=== PATIENT | female | born 1960 | race Caucasian/White ===

== ENCOUNTER 2025-01-07 13:15 | Outpatient (CLI) | payer BC | END 2025-01-07 13:16 | disposition home or self-care (01) | LOC: CSHMAMMO 13:15 | PROVIDERS: ATTEND Family Medicine | DX: Z12.31 Encounter for screening mammogram for malignant neoplasm of breast (principal); M85.851 Other specified disorders of bone density and structure, right thigh; M85.852 Other specified disorders of bone density and structure, left thigh; Z78.0 Asymptomatic menopausal state | CPT/HCPCS: 77063; 77067; 77080 ==